=== PATIENT | male | born 1945 | race African-American/Black ===

== ENCOUNTER → 2023-12-18 08:07 | Outpatient (REF) | payer MEDICARE, BC, SELFPAY | LOC: HWRCS 08:07 | PROVIDERS: ATTENDING PHYSICIAN Internal Medicine Cardiovascular Disease; FAMILY PHYSICIAN Internal Medicine | DX: I51.7 Cardiomegaly (principal) | CPT/HCPCS: 93306 ==

== ENCOUNTER → 2024-01-11 10:08 | Outpatient (REF) | payer MEDICARE, BC, SELFPAY | LOC: HWRAD 10:08 | PROVIDERS: ATTENDING PHYSICIAN Internal Medicine | DX: J18.9 Pneumonia, unspecified organism (principal) | CPT/HCPCS: 71046 ==

== ENCOUNTER → 2025-01-25 07:44 | Outpatient (REF) | payer MEDICARE, BC, SELFPAY | LOC: MRI 07:44 | PROVIDERS: ATTENDING PHYSICIAN Internal Medicine | DX: Z91.81 History of falling (principal); Z74.09 Other reduced mobility; R26.89 Other abnormalities of gait and mobility | CPT/HCPCS: 70551 ==